=== PATIENT | female | born 1990 | race Caucasian/White ===

== ENCOUNTER 2024-05-08 12:32 | Outpatient (CLI) | payer BC ==
[~2024-05-08 12:32] MED LIST: Iopamidol 300 61% 100 ML VIAL FS ONE
== END 2024-05-08 12:33 | disposition home or self-care (01) ==
LOC: CSHCT 12:32
PROVIDERS: ATTEND Physician Assistant
DX: J39.2 Other diseases of pharynx (principal); R09.A2 Foreign body sensation, throat; J34.1 Cyst and mucocele of nose and nasal sinus
CPT/HCPCS: 70491; Q9967

== ENCOUNTER 2025-07-08 17:20 | Emergency (ER) | payer BC ==
[2025-07-08] MEDS ORDERED: diphenhydrAMINE 50 MG/ML VIAL ONE (18:07)
[2025-07-08] MEDS ORDERED: Metoclopramide HCl 10 MG (2 mL) VIAL ONE (18:07)
[2025-07-08 19:48] LABS: Glucose, Urine (Dipstick) Negative (Negative); Leukocyte Trace (Negative); Protein, Urine (Dipstick) Negative (Neg-Trace); Specific Gravity, Urine 1.010 (1.005-1.030)
[2025-07-08 19:56] LABS: Bacteria/HPF None Seen HPF (None Seen); CAUTI Indications for Culture Pregnancy; RBC/HPF 0-3 HPF (0-3); WBC/HPF 0-3 HPF (0-3)
[2025-07-08 19:57] LABS: Urine Culture Reflex Yes Yes
== END 2025-07-08 19:22 | disposition home or self-care (01) ==
LOC: CSHERS 17:20
DX: O99.351 Diseases of the nervous system complicating pregnancy, first trimester (principal); G43.919 Migraine, unspecified, intractable, without status migrainosus; Z3A.13 13 weeks gestation of pregnancy
CPT/HCPCS: 81001; 87086; 96365; 96375; J1200; J2765

== ENCOUNTER 2025-09-07 16:38 | Day surgery (SDC) | payer BC ==
[2025-09-07 17:14] VITALS: BMI 26.9
[2025-09-07 17:19] LABS: Glucose, Urine (Dipstick) Normal (Negative); Leukocyte Negative (Negative); Protein, Urine (Dipstick) Negative (Neg-Trace); Specific Gravity, Urine 1.015 (1.005-1.030)
[2025-09-07 17:52] LABS: Bacteria/HPF 2+ HPF (None Seen); RBC/HPF 0-3 HPF (0-3); WBC/HPF 0-3 HPF (0-3)
[2025-09-07] MEDS ORDERED: hydrALAZINE 20 MG/ML VIAL SLOW IVP PRN (18:31)
[2025-09-07] MEDS ORDERED: metroNIDAZOLE 500 MG TAB PO SCH (21:00)
[2025-09-08] MEDS ORDERED: metroNIDAZOLE 500 MG TAB PO SCH (09:00)
[2025-09-08 22:36] LABS: Chlamydia by PCR, Vaginal Swab Not Detected (NotDetected); GC by PCR, Vaginal Swab Not Detected (NotDetected); Tric.vaginalis PCR,Vaginal Sw Not Detected (NotDetected)
== END 2025-09-07 19:44 | disposition home or self-care (01) ==
LOC: CSHLD/OP 16:38
PROVIDERS: ATTEND Obstetrics & Gynecology
DX: O23.592 Infection of other part of genital tract in pregnancy, second trimester (principal); B96.89 Other specified bacterial agents as the cause of diseases classified elsewhere; O34.211 Maternal care for low transverse scar from previous cesarean delivery; Z3A.21 21 weeks gestation of pregnancy
CPT/HCPCS: 81001; 87086; 87480; 87491; 87510; 87591; 87660; 87661